=== PATIENT | male | born 1975 | race American Indian/Alaskan Native ===

== ENCOUNTER 2017-04-13 20:26 | Emergency (ER) | payer OTHER ==
[2017-04-13] MEDS ORDERED: NACL 0.9% 1000 ML 1,000 ML IV ONE (21:32)
--- NOTE | 2017-04-13 21:35 | Emergency Department Report ---
ED Alcohol HPI - General Chief Complaint: Alcohol Stated Complaint: MH EVAL Time Seen by Provider: 04/13/17 21:24 Source: patient Mode of arrival: Ambulatory Limitations: No Limitations - History of Present Illness Initial Comments: Patient is a 41 years old male brought by PD after they received a call from his significant other that he is fighting with. Patient is been drinking all day today. He denied any suicidal or homicidal ideation. No auditory or visual hallucination. MD Complaint: alcohol intoxication Chronic Alcohol Use: Yes Recent Trauma: No - Related Data Home Medications Medication Instructions Recorded Confirmed Last Taken No Known Home Medications [No 04/14/17 04/14/17 Unknown Reported Home Medications] Allergies Allergy/AdvReac Type Severity Reaction Status Date / Time No Known Allergies Allergy Unverified 04/13/17 21:21 ED Review of Systems ROS: Stated complaint: MH EVAL Other details as noted in HPI Comment: All other systems reviewed and negative Constitutional: denies: chills, fever ENT: denies: throat pain Respiratory: denies: cough, orthopnea, shortness of breath, SOB with exertion, SOB at rest Cardiovascular: denies: chest pain, palpitations, dyspnea on exertion, orthopnea , edema Gastrointestinal: denies: abdominal pain, nausea, vomiting, diarrhea, constipation, hematemesis Genitourinary: denies: urgency, dysuria, frequency Neurological: denies: headache, weakness, numbness, paresthesias Psychiatric: denies: anxiety, depression, auditory hallucinations, visual hallucinations, homicidal thoughts, suicidal thoughts ED Past Medical Hx - Past Medical History Previous Medical History?: No - Surgical History Past Surgical History?: No - Social History Smoking Status: Current Every Day Smoker Substance Use Type: Alcohol - Medications Home Medications: Home Medications Medication Instructions Recorded Confirmed Last Taken Type No Known Home Medications [No 04/14/17 04/14/17 Unknown History Reported Home Medications] ED Physical Exam - General Limitations: No Limitations General appearance: alert, appears intoxicated - Head Head exam: Present: atraumatic, normocephalic, normal inspection - Eye Eye exam: Present: normal appearance, PERRL - ENT ENT exam: Present: normal exam, normal orophraynx, mucous membranes moist - Neck Neck exam: Present: normal inspection - Respiratory Respiratory exam: Present: normal lung sounds bilaterally. Absent: respiratory distress, wheezes, rales, rhonchi, chest wall tenderness, accessory muscle use, decreased breath sounds, prolonged expiratory - Cardiovascular Cardiovascular Exam: Present: regular rate, normal rhythm, normal heart sounds - GI/Abdominal GI/Abdominal exam: Present: soft, normal bowel sounds. Absent: distended, tenderness, guarding, rebound, rigid, mass, bruit, pulsatile mass, hernia - Extremities Exam Extremities exam: Present: normal inspection. Absent: tenderness, normal capillary refill - Back Exam Back exam: Present: normal inspection. Absent: CVA tenderness (R), CVA tenderness (L) - Neurological Exam Neurological exam: Present: alert, oriented X3, CN II-XII intact, normal gait - Psychiatric Psychiatric exam: Present: agitated, anxious. Absent: flat affect, manic, homicidal ideation, suicidal ideation - Skin Skin exam: Present: warm, intact, normal color ED Course Vital Signs 04/13/17 04/13/17 04/14/17 21:17 22:10 09:00 Temperature 97.9 F Pulse Rate 95 H Respiratory 18 18 16 Rate Blood Pressure 104/74 Blood Pressure [Left] O2 Sat by Pulse 96 96 99 Oximetry 04/14/17 04/14/17 04/15/17 09:15 19:00 09:03 Temperature 98.6 F 98.7 F 99 F Pulse Rate 82 61 79 Respiratory 16 16 18 Rate Blood Pressure Blood Pressure 140/87 149/93 129/71 [Left] O2 Sat by Pulse 99 100 Oximetry 04/15/17 19:08 Temperature 98.8 F Pulse Rate 66 Respiratory 18 Rate Blood Pressure Blood Pressure 126/76 [Left] O2 Sat by Pulse 100 Oximetry ED Medical Decision Making - Lab Data Result diagrams: 04/13/17 21:33 04/13/17 21:33 Critical care attestation.: If time is entered above; I have spent that time in minutes in the direct care of this critically ill patient, excluding procedure time. ED Disposition Clinical Impression: Alcohol intoxication Disposition: DC-01 TO HOME OR SELFCARE Is pt being admited?: No Condition: Stable Referrals: PRIMARY CARE, [Primary Care Provider] - 3-5 Days
[2017-04-13 21:49] LABS: Basophils % (Auto) 0.8 % (0.0-1.8); Hematocrit 45.9 % (35.5-45.6); Hemoglobin 15.5 gm/dl (11.8-15.2); Mean Corpuscular HGB Conc 34 % (32-34); Mean Corpuscular Hemoglobin 33 pg (28-32); Mean Corpuscular Volume 97 fl (84-94); Red Blood Count 4.72 M/mm3 (3.65-5.03); Red Cell Distribution Width 13.9 % (13.2-15.2); White Blood Count 6.9 K/mm3 (4.5-11.0)
[2017-04-13 22:04] LABS: Platelet Count 91 K/mm3 (140-440)
[2017-04-13 22:10] LABS: Anion Gap 23 mmol/L; BUN/Creatinine Ratio 12; Blood Urea Nitrogen 7 mg/dL (9-20); Calcium 8.7 mg/dL (8.4-10.2); Carbon Dioxide 26 mmol/L (22-30); Glucose 74 mg/dL (75-100); Potassium 3.7 mmol/L (3.6-5.0); Sodium 150 mmol/L (137-145)
[2017-04-14 00:18] LABS: Urine Drugs of Abuse Note Disclamer
[2017-04-14 00:38] LABS: Bilirubin,Urine NEG (Negative); Blood,Urine SM (Negative); Ketones,Urine 20 mg/dL (Negative); Leukocyte Esterase,Urine NEG (Negative); Mucus,Urine FEW /HPF; Nitrite,Urine NEG (Negative); Urobilinogen,Urine < 2.0 mg/dL (<2.0)
[2017-04-14] MEDS ORDERED: NACL 0.9% 1000 ML 1,000 ML ONE (02:42)
[2017-04-14] MEDS ORDERED: ATIVAN PO PRN ×2 (10:50)
--- NOTE | 2017-04-14 13:53 | Consultation ---
History of Present Illness - Reason for Consult Consult date: 04/14/17 Reason for consult: Mental Health Evaluation Requesting physician: KATIE CASTILLO - Chief Complaint Chief complaint: "I just like to drink" - History of Present Psychiatric Illness 41 y.o. AA male presenting to [facility] for ETOH. Today patient is calm and cooperative during the assessment. He stated that he may have stated that he was suicidal when he was picked up by EMS prior to his admission to [facility]. He stated that he was intoxicated when he was arguing with his girlfriend when she called the police. He stated that he been drinking (etoh) for the past 25 plus years. He stated that he drink (etoh) daily for fun. He stated that he feel that he can quick drinking (etoh) at anytime, but is open to rehab services when discharged. He denies being depressed. He denies sleep disturbance and a poor appetite. He denies SI/HI's and AVH's. He denies recreational drug use. Patient did report past alcohol withdrawals when he abruptly stopped drinking ( etoh). Medications and Allergies Allergies Allergy/AdvReac Type Severity Reaction Status Date / Time No Known Allergies Allergy Unverified 04/13/17 21:21 Home Medications Medication Instructions Recorded Confirmed Last Taken Type No Known Home Medications [No 04/14/17 04/14/17 Unknown History Reported Home Medications] Active Meds: Active Medications Lorazepam (Ativan) 2 mg PO Q1HR PRN PRN Reason: CIWA-Ar 8-15 Lorazepam (Ativan) 4 mg PO Q1HR PRN PRN Reason: CIWA-Ar 16-25 Past psychiatric history - Past Medical History Past Medical History: No medical history Past Surgical History: No surgical history - past Psychiatric treatment and history psychiatric treatment history: Denies a psy hx and a fam psy hx. - Social History Social history: lives with family Mental Status Exam - Vital signs Last Vital Signs Temp 97.9 F 04/13/17 21: Pulse 95 H 04/13/17 21:17 Resp 18 04/13/17 22:10 BP 104/74 04/13/17 21:17 Pulse Ox 96 04/13/17 22:10 - Exam Narrative exam: MSE: Appearance: calm, cooperative Behavior: regular eye contact Speech: regular rate and low tone Mood: "okay" Affect: congruent to mood Thought Process: circumstantial Thought Content: denies SI/HI's and AVH's Motor Activity: ambulatory Cognition: A/O x3 Insight: fair Judgment: fair Results Result Diagrams: 04/13/17 21:33 04/13/17 21:33 Abnormal lab results 04/13/17 04/13/17 04/13/17 Range/Units 21:33 21:33 21:33 Hgb 15.5 H (11.8-15.2) gm/dl Hct 45.9 H (35.5-45.6) % MCV 97 H (84-94) fl MCH 33 H (28-32) pg Plt Count 91 L (140-440) K/mm3 Sodium 150 H (137-145) mmol/L BUN 7 L (9-20) mg/dL Creatinine 0.6 L (0.8-1.5) mg/dL Glucose 74 L (75-100) mg/dL Plasma/Serum Alcohol 0.41 H (0-0.07) gm% All other labs normal. Assessment and Plan Assessment and plan: Impression: Alcohol Use DO. Alcohol Intoxication. Today patient is calm and cooperative during the assessment. No acute alcohol withdrawals noted (etoh). DDx: R/O Mood DO Recommendation/Plan: Evaluate 1013 in 24 hours and gather collateral information to help determine proper dispo and treatment. Continue CIWA.
--- NOTE | 2017-04-14 20:51 | Emergency Department Report ---
Blank Doc - Documentation Documentation: I went to reevaluate this patient as he was originally brought in as a 1013 by the police and then was made a 2013 by my colleague, Dr Betancourt. However it does not appear as if the 2013 was appropriately filled out. I saw the recommendations made by the psychiatric team, that was done today at about 2 PM , and it says to review this case and reevaluate in 24 hours for appropriate disposition. It did not mention anything about resending a 1013 or 2013. For this reason I have filled out a 1013 based on the information from when the patient had a high alcohol level and intoxication in which she made harmful or suicidal threats, witnessed by his significant other at that time. He is currently calm and appropriate and he understands the need for further evaluation. We will make sure that psych reevaluates him tomorrow for proper recommendations and possible resending of the 1013. Vital signs stable.
--- NOTE | 2017-04-15 12:22 | Progress Note ---
Subjective - Reason for Consult Consult date: 04/15/17 Reason for consult: Psychiatry Follow-up - Chief Complaint Chief complaint: "I plan to stop drinking" 41 y.o. AA male presenting to [facility] for ETOH. Today patient is calm and cooperative during the assessment. Today patient is calm and cooperative during the assessment. He stated that he plan to attend AA and outpatient rehab services once discharged. Per collateral information from his girlfriend Agnieszka Schuler at [phone], she stated that he made a statement about wanting it to be "over." She stated that they had gotten into an argument and he was intoxicated when he made the statement. She stated that he has never made a statement like that before. She denies any prior suicide attempts by the patient. She denies that the patient has a mood do, but stated, "He drinks a lot." She stated the patient can benefit from rehab services. She stated that the patient can return home once discharged. The patient denies SI/HI's and AVH' s. Per the staff, no behavioral disturbance overnight. Mental Status Exam - Vital signs Last Vital Signs Temp 99 F 04/15/17 09:03 Pulse 79 04/15/17 09:03 Resp 18 04/15/17 09:03 BP 129/71 04/15/17 09:03 Pulse Ox 100 04/15/17 09:03 - Exam Narrative exam: MSE: Appearance: calm, cooperative Behavior: regular eye contact Speech: regular rate and low tone Mood: "well" Affect: congruent to mood Thought Process: linear Thought Content: denies SI/HI's and AVH's Motor Activity: ambulatory Cognition: A/O x3 Insight: fair Judgment: fair Assessment and Plan Impression: Alcohol Use DO. Alcohol Intoxication. Today patient is calm and cooperative during the assessment. No acute alcohol withdrawals noted (etoh). Patient is no threat to self. DDx: R/O Mood DO, Alcohol Induced Mood DO Recommendation/Plan: Rescind 1013. Patient given outpatient rehab services for [facility]. Patient plan to attend AA. Discussed with patient the importance to abstain from alcohol consumption.
[2017-04-15 19:09] VITALS: BP 126/76
== END 2017-04-15 19:08 | disposition home or self-care (01) ==
LOC: ED 20:26 → EEVIPCON 20:26 → ED 04-15 19:08
DX: F10.129 Alcohol abuse with intoxication, unspecified (principal); F17.200 Nicotine dependence, unspecified, uncomplicated
CPT/HCPCS: 36415; 80048; 80307; 81001; 85025; 96360; 96361; 99284; G0480; J7030; 80320

== ENCOUNTER 2021-08-22 16:03 | Emergency (ER) | payer SELFPAY ==
[2021-08-22] MEDS ORDERED: LORazepam 2 MG/ML VIAL IV ONE (16:32)
[2021-08-22 16:50] LABS: Basophils % (Auto) 0.5 % (0.0-1.8); Eosinophils % (Auto) 0.3 % (0.0-4.3); Hemoglobin 13.7 gm/dl (11.8-15.2); Mean Corpuscular HGB Conc 34 % (32-34); Mean Corpuscular Volume 94 fl (84-94); Monocytes # (Auto) 0.3 K/mm3 (0.0-0.8); Monocytes % (Auto) 5.9 % (0.0-7.3); Platelet Count 112 K/mm3 (140-440); Red Blood Count 4.25 M/mm3 (3.65-5.03); Red Cell Distribution Width 14.9 % (13.2-15.2)
--- NOTE | 2021-08-22 16:52 | XRay Report ---
CHEST 1 VIEW 08/22/2021 3:45 PM INDICATION / CLINICAL INFORMATION: Alcohol Intoxication. COMPARISON: None available. FINDINGS: SUPPORT DEVICES: None. HEART / MEDIASTINUM: The heart size and pulmonary vasculature are normal. LUNGS / PLEURA: No significant pulmonary or pleural abnormality. No pneumothorax. ADDITIONAL FINDINGS: No significant additional findings. IMPRESSION: No acute findings. There is no evidence of aspiration pneumonia. Signer Name: Mik John MD Signed: 08/22/2021 4:47 PM Workstation Name: [employer] [id number]
[2021-08-22] MEDS ORDERED: THIAMINE 100 MG, FOLIC ACID 1 MG, MULTIPLE VITAMIN INJ, ADULT 10 ML in SODIUM CHLORIDE ... IV ONE (17:00)
[2021-08-22 17:07] LABS: Blood Urea Nitrogen 7 mg/dL (9-20); Calcium 8.6 mg/dL (8.4-10.2); Hemolysis Index 6
[2021-08-22 17:13] LABS: BUN/Creatinine Ratio 10
[2021-08-22 19:25] VITALS: BP 157/102
--- NOTE | 2021-08-22 19:32 | Emergency Department Report ---
ED Alcohol HPI - General Chief Complaint: Alcohol Stated Complaint: DETOX/POSS ETOH Time Seen by Provider: 08/22/21 16:28 Source: EMS Mode of arrival: Stretcher Limitations: No Limitations - History of Present Illness Initial Comments: PT ARRIVING FROM WORK, POSSIBLE DT'S. LAST DRINK APPROX YESTERDAY AT 9 PM NO si OR HI , PT WASNNT PLANNING TO QUIT , NO HALLUCINATION , ALERT AND AWAKE MD Complaint: alcohol withdrawal Time Since Last Drink: 12 -: hour(s) Chronic Alcohol Use: Yes Previous Visits for Alcohol Intoxication?: Yes Recent Trauma: No Associated Symptoms: diaphoresis, tremors. denies: denies other symptoms, abdominal pain Treatments Prior to Arrival: none - Related Data Home Medications Medication Instructions Recorded Confirmed Last Taken No Known Home Medications [No 04/14/17 04/14/17 Unknown Reported Home Medications] Allergies Allergy/AdvReac Type Severity Reaction Status Date / Time No Known Allergies Allergy Verified 08/22/21 16:13 ED Review of Systems ROS: Stated complaint: DETOX/POSS ETOH Other details as noted in HPI Constitutional: denies: chills, fever Eyes: denies: eye pain, eye discharge, vision change ENT: denies: ear pain, throat pain Respiratory: denies: cough, shortness of breath, wheezing Cardiovascular: denies: chest pain, palpitations Endocrine: no symptoms reported Gastrointestinal: denies: abdominal pain, nausea, diarrhea Genitourinary: denies: urgency, dysuria Musculoskeletal: denies: back pain, joint swelling, arthralgia Skin: denies: rash, lesions Neurological: denies: headache, weakness, paresthesias Psychiatric: denies: anxiety, depression Hematological/Lymphatic: denies: easy bleeding, easy bruising ED Past Medical Hx - Past Medical History Previous Medical History?: No Hx Hypertension: No Hx CVA: No - Social History Smoking Status: Never Smoker - Medications Home Medications: Home Medications Medication Instructions Recorded Confirmed Last Taken Type No Known Home Medications [No 04/14/17 04/14/17 Unknown History Reported Home Medications] ED Physical Exam - General Limitations: No Limitations General appearance: alert, anxious - Head Head exam: Present: atraumatic, normocephalic - Eye Eye exam: Present: normal appearance - ENT ENT exam: Present: mucous membranes moist - Neck Neck exam: Present: normal inspection - Respiratory Respiratory exam: Present: normal lung sounds bilaterally. Absent: respiratory distress - Cardiovascular Cardiovascular Exam: Present: regular rate, tachycardia. Absent: systolic murmur, diastolic murmur, rubs, gallop - GI/Abdominal GI/Abdominal exam: Present: soft, normal bowel sounds - Rectal Rectal exam: Present: deferred - Extremities Exam Extremities exam: Present: normal inspection - Back Exam Back exam: Present: normal inspection - Neurological Exam Neurological exam: Present: alert, oriented X3 - Psychiatric Psychiatric exam: Present: normal affect, normal mood - Skin Skin exam: Present: warm, dry, intact, normal color. Absent: rash ED Course Vital Signs 08/22/21 08/22/21 08/22/21 16:13 16:23 16:37 Pulse Rate 102 H Respiratory Rate Blood Pressure Blood Pressure 150/102 [Left] O2 Sat by Pulse 95 99 97 Oximetry 08/22/21 08/22/21 08/22/21 16:45 17:01 17:15 Pulse Rate 79 Respiratory 22 Rate Blood Pressure Blood Pressure [Left] O2 Sat by Pulse 97 97 Oximetry 08/22/21 08/22/21 08/22/21 17:31 17:45 18:01 Pulse Rate 64 64 67 Respiratory 14 14 15 Rate Blood Pressure Blood Pressure [Left] O2 Sat by Pulse Oximetry 08/22/21 08/22/21 08/22/21 18:13 18:15 18:31 Pulse Rate 80 97 H 83 Respiratory 18 17 Rate Blood Pressure 144/94 144/92 Blood Pressure 144/94 [Left] O2 Sat by Pulse 99 Oximetry 08/22/21 08/22/21 08/22/21 18:45 19:01 19:15 Pulse Rate 109 H 80 84 Respiratory 19 13 20 Rate Blood Pressure 144/92 150/87 150/87 Blood Pressure [Left] O2 Sat by Pulse 88 Oximetry 08/22/21 19:24 Pulse Rate Respiratory Rate Blood Pressure Blood Pressure 157/102 [Left] O2 Sat by Pulse Oximetry ED Medical Decision Making - Lab Data Result diagrams: 08/22/21 16:30 08/22/21 16:30 - Radiology Data Radiology results: report reviewed - Medical Decision Making work up unremarkable, vss no distress ativan given pt is not planning to quit to SI or HI , will provide OP resources for alcohol quit Critical care attestation.: If time is entered above; I have spent that time in minutes in the direct care of this critically ill patient, excluding procedure time. ED Disposition Clinical Impression: Alcohol dependence Disposition: 01 HOME / SELF CARE / HOMELESS Is pt being admited?: No Does the pt Need Aspirin: No Condition: Stable Instructions: Alcohol Abuse and Dependence Information, Adult, Finding Treatment for Addiction
--- NOTE | 2021-08-24 17:52 | Electrocardiograph Report ---
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
== END 2021-08-22 20:10 | disposition home or self-care (01) ==
LOC: ED 16:03
DX: F10.20 Alcohol dependence, uncomplicated (principal)
CPT/HCPCS: 36415; 71045; 80048; 85025; 85610; 93005; 96365; 96375; 99285; J2060; J3411; J3490; J7030; 80320; Q0162; G0480